=== PATIENT | male | born 1950 | race African-American/Black ===

== ENCOUNTER 2017-03-01 11:14 | Emergency (ER) | payer OTHER ==
--- NOTE | ~2017-03-01 | CR78 ---
[facility] A Service of [facility] & [facility] RADIOLOGY TEXT RESULTS PATIENT: NICHOLE GAUTHIER LOCATION: [place]FT[facility] : 54 UNIT #: [id number] AGE: [address]: Carol Browning APRN SEX: M ORDER DR: [id number] [facility] [address] [place], [place] [address] [id number] E MR#: [id number] Acc #: [id number] NAME: NICHOLE GAUTHIER : 1950 SEX: M STUDY DATE/TIME: 03/01/2017 12:51 UNIT: [facility] ROOM: STUDY DESCRIPTION: CR Clavicle Comp Rt Attending Physician: Carol Browning A.P.R.N. Referring Physician: Fahad Daniel M.D. Ordering Physician: Ed Otis Schaffer M.D. Primary Care Physician: No Primary Care Physician MEDICAL IMAGING REPORT This report is preliminary unless electronic signature is present EXAM Right clavicle, 2 views, 03/01/17. HISTORY Right clavicle and shoulder pain for 2-3 days, no known injury. FINDINGS No fracture or dislocation. There is acromioclavicular degenerative change but no acute abnormality. Dictated by... Jim Mccrary M.D. THIS IS AN ELECTRONICALLY VERIFIED REPORT Jim Mccrary M.D. at 03/01/2017 10:46 PM JACKIE/michael TD: 03/01/2017 19:36 JOB #: [id number] MEDICAL IMAGING REPORT Page 1 of 1 COPY
--- NOTE | ~2017-03-01 | CR63 ---
[facility] A Service of [facility] RADIOLOGY TEXT RESULTS PATIENT: NICHOLE GAUTHIER LOCATION: [place] : 54 UNIT #: [id number] AGE: [address]: Carol Browning APRN SEX: M ORDER DR: [id number] [place], [place] [address] [id number] E MR#: [id number] Acc #: [id number] NAME: NICHOLE GAUTHIER : 1950 SEX: M STUDY DATE/TIME: 03/01/2017 12:50 UNIT: [facility] ROOM: STUDY DESCRIPTION: CR Chest 2 View Attending Physician: Carol Browning A.P.R.N. Ordering Physician: Ed Otis Schaffer M.D. Primary Care Physician: No Primary Care Physician MEDICAL IMAGING REPORT This report is preliminary unless electronic signature is present EXAM Chest, radiograph, 3 views, 03/01/17. COMPARISON None. CLINICAL HISTORY Two to three day history of chest and right shoulder pain. COMPARISON None. FINDINGS The lungs are well-expanded but clear. There is no pulmonary infiltrate, pleural effusion, pneumothorax or suspicious nodule. Heart size and pulmonary vascularity are normal. There is a slight dextroscoliosis and slight discogenic change, with dextroscoliosis possibly positional. IMPRESSION Normal/negative PA and lateral chest. Dictated by... Jim Mccrary M.D. THIS IS AN ELECTRONICALLY VERIFIED REPORT Jim Mccrary M.D. at 03/01/2017 10:46 PM TEV/michael TD: 03/01/2017 19:26 JOB #: [id number] [facility] A Service of [facility] RADIOLOGY TEXT RESULTS PATIENT: NICHOLE GAUTHIER LOCATION: [facility] : 54 UNIT #: [id number] AGE: [address]: Browning,Carol K CARD BOXER SEX: M ORDER DR: MEDICAL IMAGING REPORT Page 1 of 1 COPY
[~2017-03-01 11:14] MED LIST: FLOMAX0.4 M1 PO; PANTOPRAZOLE SO40 MG PO; ZANTAC PO
== END 2017-03-01 14:38 | disposition home or self-care (01) ==
LOC: CFTX 11:14 → CED 11:14 → CFTX 12:28
DX: M25.511 Pain in right shoulder (principal); Z79.899 Other long term (current) drug therapy
CPT/HCPCS: 71020; 73000; 99283; J1885

== ENCOUNTER 2017-05-06 11:23 | Emergency (ER) | payer OTHER ==
[~2017-05-06] VITALS: Ht 185.4 cm; Wt 68.0 kg
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
== END 2017-05-06 14:15 | disposition home or self-care (01) ==
LOC: CED 11:23 → CFTX 11:23
DX: S92.324A Nondisplaced fracture of second metatarsal bone, right foot, initial encounter for closed fracture (principal); S92.334A Nondisplaced fracture of third metatarsal bone, right foot, initial encounter for closed fracture; S92.344A Nondisplaced fracture of fourth metatarsal bone, right foot, initial encounter for closed fracture; W22.8XXA Striking against or struck by other objects, initial encounter; Y92.009 Unspecified place in unspecified non-institutional (private) residence as the place of occurrence of the external cause
CPT/HCPCS: 29540; 73630; 99283